=== PATIENT | female | born 1970 | race Caucasian/White ===

== ENCOUNTER 2021-06-10 16:21 | Emergency (ER) | payer OTHER ==
[~2021-06-10] VITALS: Ht 167.6 cm; Wt 92.0 kg
--- NOTE | 2021-06-10 16:41 | PHYS DOC ---
Past Medical History Past Surgical History: No Surgical History General Adult EDM: Chief Complaint: ANKLE PROBLEM HPI: HPI: Patient is a 50 year old female who was brought here by EMS from home for evaluation of left ankle injury. Patient says she was walking in her laundry room, slipped and fell down. Patient twisted her left ankle. Patient complained of left ankle and left foot pain. Patient denies any other injury to Review of Systems: Review of Systems: Constitutional: Denies fever or chills. [] Eyes: Denies change in visual acuity. [] HENT: Denies nasal congestion or sore throat. [] Respiratory: Denies cough or shortness of breath. [] Cardiovascular: Denies chest pain or edema. [] GI: Denies abdominal pain, nausea, vomiting, bloody stools or diarrhea. [] : Denies dysuria. [] Musculoskeletal: Denies back pain, POSITIVE FOR LEFT ANKLE, POSITIVE FOR LEFT FOOT PAIN Integument: Denies rash. [] Neurologic: Denies headache, focal weakness or sensory changes. [] Endocrine: Denies polyuria or polydipsia. [] Lymphatic: Denies swollen glands. [] Psychiatric: Denies depression or anxiety. [] Heart Score: C/O Chest Pain: N/A Risk Factors: Risk Factors: DM, Current or recent (<one month) smoker, HTN, HLP, family history of CAD, obesity. Risk Scores: Score 0 - 3: 2.5% MACE over next 6 weeks - Discharge Home Score 4 - 6: 20.3% MACE over next 6 weeks - Admit for Clinical Observation Score 7 - 10: 72.7% MACE over next 6 weeks - Early Invasive Strategies Allergies: Allergies: Allergies Coded Allergies Type Severity Reaction Last Updated Verified No Known Drug Allergies 06/10/21 No Physical Exam: PE: Constitutional: Well developed, well nourished, no acute distress, non-toxic appearance. [] HENT: Normocephalic, atraumatic, bilateral external ears normal, oropharynx moist, no oral exudates, nose normal. [] Eyes: PERRLA, EOMI, conjunctiva normal, no discharge. [] Neck: Normal range of motion, no tenderness, supple, no stridor. [] Cardiovascular:Heart rate regular rhythm, no murmur [] Lungs & Thorax: Bilateral breath sounds clear to auscultation [] Abdomen: Bowel sounds normal, soft, no tenderness, no masses, no pulsatile masses. [] Skin: Warm, dry, no erythema, no rash. [] Back: No tenderness, no CVA tenderness. [] Extremities: LEFT ANKLE IS TENDER AND SWOLLEN AT THE LEFT MALLEOLUS AREA. NO OPEN WOUND. THERE IS NO TENDERNESS TO PALPATION ALONG THE LEFT TIB/FIB , LEFT KNEE AREA. Neurologic: Alert and oriented X 3, normal motor function, normal sensory function, no focal deficits noted. [] Psychologic: Affect normal, judgement normal, mood normal. [] Current Patient Data: Vital Signs: Vital Signs Date Time Temp Pulse Resp B/P (MAP) Pulse Ox O2 Delivery O2 Flow Rate FiO2 06/10/21 16:25 98.5 75 18 130/88 (102) 95 Room Air 98.5 EKG: EKG: [] Radiology/Procedures: Radiology/Procedures: Splinting Procedure: Indication: LEFT DISTAL FIBULAR FRACTURE Splint was done by: THIS PHYSICIAN Method: STIR UP COAPTATION Material: ORTHOGLASS MATERIAL Post Splinting exam was done by this physician, capillary refill of the affected extremity was less than 2 seconds, no focal neurovascular deficit. No evidence of compartment syndrome. Complication : none, patient tolerated procedure well. Course & Med Decision Making: Course & Med Decision Making Pertinent Labs and Imaging studies reviewed. (See chart for details) Patient is a 50-year-old female who was brought here by EMS from home after she injured her left ankle. X-ray show fracture of the distal fibula bone. Patient may have an avulsion fracture at the midfoot area. a coaptation stirrup splint was applied. Patient be discharged home with crutches nonweightbearing, patient will follow up orthopedic surgeon for outpatient revaluation and treatment. [place] Disclaimer: [place] Disclaimer: This electronic medical record was generated, in whole or in part, using a voice recognition dictation system. Departure Departure Impression: Primary Impression: Closed left fibular fracture Disposition: HOME / SELF CARE / HOMELESS Condition: IMPROVED Referrals: ARIANNA ROBLERO Jr. DO PLEASE CALL THIS ORTHOPEDIC SURGEON THIS WEEK FOR FOLLOW UP. Patient Instructions: Fibular Fracture, Ankle, Adult, Undisplaced, Treated with Immobilization Additional Instructions: Thank you for visiting our Emergency Department. We appreciate you trusting us with your care. If any additional problems come up don't hesitate to return to visit us. Please follow up with your primary care provider so they can plan additional care if needed and know about the problem that you had. If symptoms worsen come back to the Emergency Department. Any concerning symptoms that start such as chest pain, shortness of air, weakness or numbness on one side of the body, running high fevers or any other concerning symptoms return to the ER. Scripts Hydrocodone/Acetaminophen (Hydrocodone-Acetamin 5-325 mg) 1 Each Tablet 1 EACH PO Q6HRS PRN for PAIN, #15 TAB Prov: KATHERINE LAYTON DO 06/10/21 Hydrocodone Bit/Acetaminophen (HYDROCODONE-APAP 5-325 ) 1 Tab Tablet 1 TAB PO PRN Q6HRS PRN for PAIN, #15 TAB 0 Refills Prov: KATHERINE LAYTON DO 06/10/21 KATHERINE LAYTON DO Jun 10, 2021 16:41
[2021-06-10] MEDS ORDERED: ONDANSETRON PF 4 MG/2 ML VIAL. IVP ONE (16:45)
[2021-06-10] MEDS ORDERED: MORPHINE SULFATE 4 MG/ML INJ. IVP ONE (16:45)
--- NOTE | 2021-06-10 17:23 | RAD ---
Study: 1. XR FOOT_LEFT 3 VIEWS 2. XR EXAM OF ANKLE_LEFT 3V Indication: Pain and swelling. Injury. Comparison: None. Findings: Left ankle: Acute Galindo type B fibular fracture with approximately 3 mm displacement. Widening of the medial gutt er no discrete fracture of the medial or posterior malleoli. Lateral more so than medial ankle swelli ng. Left foot: Thin focus of mineralization projecting along the dorsal/medial margin of the medial cuneiform adjace nt to the first tarsometatarsal joint suspected to represent an acute avulsion fracture. Alignment at the Lisfranc interval is within normal limits but assessment is incomplete without weightbearing. Impression: Left ankle: 1. Acute Glaindo type B distal fibula fracture with minimal displacement. 2. Widening of the medial gutter suggesting deltoid ligament injury. When follow-up is performed it i s recommended that the patient is weightbearing. Left foot: 1. Probably acute small avulsion fracture at the dorsal/medial aspect of the medial cuneiform adjacen t to the first TMT joint. Given proximity to the Lisfranc interval follow-up weightbearing radiograph s are recommended. Electronically signed by: RODY COX MD (06/10/2021 5:20 PM) [facility]
[2021-06-10] MEDS ORDERED: HYDR-2761 PO (17:25)
[2021-06-10] MEDS ORDERED: HYDR-2759 PO (17:55)
[2021-06-10 18:38] VITALS: BP 147/70
== END 2021-06-10 18:40 | disposition home or self-care (01) ==
LOC: ER 16:21
DX: S82.402A Unspecified fracture of shaft of left fibula, initial encounter for closed fracture (principal); W01.0XXA Fall on same level from slipping, tripping and stumbling without subsequent striking against object, initial encounter; Y93.01 Activity, walking, marching and hiking; Y92.89 Other specified places as the place of occurrence of the external cause; Y99.8 Other external cause status
CPT/HCPCS: 29515; 73610; 73630; 99283; 99284